=== PATIENT | female | born 1985 | race Caucasian/White ===

== ENCOUNTER 2017-03-23 15:25 | Emergency (ER) | payer OTHER ==
[~2017-03-23] VITALS: Ht 160 cm; Wt 133.0 kg
[2017-03-23 15:52] VITALS: Ht 160 cm; Wt 133.0 kg
[2017-03-23 16:59] LABS: URINE BLOOD (Dip) POC Negative (NEGATIVE)
[2017-03-23] MEDS ORDERED: ACET/BUTAL/CAFF TAB PO ONE (17:00)
[2017-03-23] MEDS ORDERED: FIORICET PO (18:29)
[2017-03-23 18:41] VITALS: BP 154/85; PULSE 94; RESP 18; TEMP 98.2
--- NOTE | 2017-03-23 19:29 | ERD ---
ER Documentation Chief Complaint Date/Time DATE: 03/23/17 TIME: 19:24 Chief Complaint RT SIDE MUNSON AND RIGHT EAR PAIN X 5 DAYS HPI 31-year-old female patient with no significant past medical history presents to the ED complaining of a right-sided headache that started gradually 1 week ago but however the pain radiated to her ear yesterday. Rates the pain a 10 out of 10 and describes as sharp and pulsating. States that she took ibuprofen and it has slight relief of her pain. States last dosage was 2 hours ago. Reports the pain is intermittent. States that loud noises make the pain worse. Denies any abdominal pain, weakness, dizziness, nausea, vomiting, diarrhea, chest pain , shortness of breath. Denies any head injuries. Denies any loss of consciousness. Denies any seizures. Denies any blurred vision, diplopia, photophobia. ROS All systems reviewed and are negative except as per history of present illness. Medications Home Meds Active Scripts Acetamin/Butalbital/Caffeine* (Fioricet*) [id number] Tab, 1 TAB PO Q6H Y for PAIN, #30 TAB Prov:ROSALINDA COLLINS PA-C 03/23/17 Allergies Allergies: Coded Allergies: Penicillins (Verified Allergy, Mild, rash, 03/23/17) throat swelling PMhx/Soc Medical and Surgical Hx: pt denies Medical Hx, pt denies Surgical Hx History of Surgery: No Anesthesia Reaction: No Hx Neurological Disorder: No Hx Respiratory Disorders: No Hx Cardiac Disorders: No Hx Psychiatric Problems: No Hx Miscellaneous Medical Probl: No Hx Alcohol Use: No Hx Substance Use: No Hx Tobacco Use: No Physical Exam Vitals Vital Signs Date Time Temp Pulse Resp B/P Pulse Ox O2 Delivery O2 Flow Rate FiO2 03/23/17 18:41 98.2 94 18 154/85 100 Room Air 03/23/17 15:52 97.6 100 20 173/90 100 Physical Exam Const: [id number], well-nourished. In no acute distress. Head: Atraumatic, normocephalic Eyes: Normal Conjunctiva without injection. No purulent discharge. PERRLA. EOMI ENT: Normal external ear. Ear canal without erythema. Tympanic membrane pearly olivera without effusion or bulging. Nasal canal clear with normal turbinates. Moist oropharynx without tonsillar exudates. Non-erythematous pharynx. Uvula midline. No drooling. No trismus. Neck: No cervical midline tenderness. Full range of motion. No meningismus. No cervical lymphadenopathy. No JVD. Resp: Clear to auscultation bilaterally. No wheezing, rhonchi, rales, or crackles. No accessory muscle use. No retractions. Cardio: Regular rate and rhythm. No murmurs, rubs or gallops. Abd: Soft, non tender, non distended. Normal bowel sounds. No palpable masses. No rebound tenderness. No guarding. Negative McBurney's Point. Negative Buckner's Sign. Skin: Normal skin turgor. No petechiae or rashes Back: No midline tenderness. No CVA tenderness. Ext: No cyanosis, or edema. Distal pulses intact bilaterally. Neur: Awake and alert. Normal gait. Normal coordination. Cranial Nerves II- VII intact. Normal finger to nose. Muscle strength 5/5. Sensation intact. Psych: Normal Mood and Affect Results 24 hrs Laboratory Tests Test 03/23/17 16:59 Bedside Urine pH (LAB) 5.5 Bedside Urine Protein (LAB) 1+ Bedside Urine Glucose (UA) 0.50% Bedside Urine Ketones (LAB) Trace Bedside Urine Blood Negative Bedside Urine Nitrite (LAB) Negative Bedside Urine Leukocyte Esterase (L Negative Current Medications Medications (Trade) Dose Ordered Sig/Juan Luis Route PRN Reason Start Time Stop Time Status Last Admin Dose Admin Acetaminophen/ Butalbital/ Caffeine (Fioricet) 1 tab ONCE ONCE PO 03/23/17 17:00 03/23/17 17:01 DC 03/23/17 17:17 Procedures/MDM This is a 31-year-old female patient with no significant past medical history presents to the ED complaining of a headache that started intermittently 1 week ago. Patient is afebrile and nontoxic-appearing. Patient has normal vital signs. A urine dip and urine was ordered to further evaluate patient. Patient's blood pressure was noted to be 173/86. Patient's blood pressure was elevated (>120/80) but appears stable without evidence of hypertension emergency or urgency. The patient was counseled about the risks of hypertension and urged to pursue outpatient monitoring and therapy within a week with their primary care physician. This could be secondary to pain. Patient was given Fioricet here in the ED with improvement of her pain. Patient 's blood pressure is now 154/85. Urine dip showed 0.5% glucose, trace ketones and 1+ proteinuria. Negative . This case was discussed with my supervising physician, Dr. Doherty who agreed with the management and discharge plan. No proptosis noted, jaw claudication. Patient could likely have a nonspecific headache - tension versus migraine. Low suspicion for temporal arteritis, intracranial bleed, subarachnoid hemorrhage, meningitis, TIA, stroke , subdural hematoma, epidural hematoma, seizures, or other emergent conditions. Discharge medications: Fioricet Follow up with primary care physician in 1-2 days for further evaluation and treatment. Instructed patient to return to the ED sooner for any worsening symptoms. Patient's questions were answered. Patient understood and agreed with discharge plan. Patient discharged stable. Departure Diagnosis: Primary Impression: Headache Headache type: unspecified Headache chronicity pattern: acute headache Intractability: not intractable Qualified Code: R51 - Acute nonintractable headache, unspecified headache type Condition: Stable Patient Instructions: Headache, Unspecified Referrals: RYAN EATON (PCP) [facility] YOU HAVE RECEIVED A MEDICAL SCREENING EXAM AND THE RESULTS INDICATE THAT YOU DO NOT HAVE A CONDITION THAT REQUIRES URGENT TREATMENT IN THE EMERGENCY DEPARTMENT. FURTHER EVALUATION AND TREATMENT OF YOUR CONDITION CAN WAIT UNTIL YOU ARE SEEN IN YOUR DOCTORS OFFICE WITHIN THE NEXT 1-2 DAYS. IT IS YOUR RESPONSIBILITY TO MAKE AN APPOINTMENT FOR FOLOW-UP CARE. IF YOU HAVE A PRIMARY DOCTOR --you should call your primary doctor and schedule an appointment IF YOU DO NOT HAVE A PRIMARY DOCTOR YOU CAN CALL OUR PHYSICIAN REFERRAL HOTLINE AT IF YOU CAN NOT AFFORD TO SEE A PHYSICIAN YOU CAN CHOSE FROM THE FOLLOWING [facility] [address] [facility]. [facility] [address] [facility]. [facility] [address] [facility]. [facility] [address] [facility]. [facility] [address] [facility]. [facility]. [address] [facility]. [facility] YOU HAVE RECEIVED A MEDICAL SCREENING EXAM AND THE RESULTS INDICATE THAT YOU DO NOT HAVE A CONDITION THAT REQUIRES URGENT TREATMENT IN THE EMERGENCY DEPARTMENT. FURTHER EVALUATION AND TREATMENT OF YOUR CONDITION CAN WAIT UNTIL YOU ARE SEEN IN YOUR DOCTORS OFFICE WITHIN THE NEXT 1-2 DAYS. IT IS YOUR RESPONSIBILITY TO MAKE AN APPOINTMENT FOR FOLOW-UP CARE. IF YOU HAVE A PRIMARY DOCTOR --you should call your primary doctor and schedule and appointment IF YOU DO NOT HAVE A PRIMARY DOCTOR YOU CAN CALL OUR PHYSICIAN REFERRAL HOTLINE AT . IF YOU CAN NOT AFFORD TO SEE A PHYSICIAN YOU CAN CHOSE FROM THE FOLLOWING [facility] INSTITUTIONS: [facility] [address] [place] [address] [facility] [address] [place] [address] [facility] [address] [place] [address] [facility] URGENT CARE/SPECIALTIES Additional Instructions: Call your primary care doctor TOMORROW for an appointment during the next 1-2 days.See the doctor sooner or return here if your condition worsens before your appointment time. ROSALINDA COLLINS PA-C Mar 23, 2017 19:29 ROSALINDA COLLINS PA-C Mar 23, 2017 19:29
== END 2017-03-23 18:43 | disposition home or self-care (01) ==
LOC: FTE 15:25
DX: R51 Headache (principal)
CPT/HCPCS: 81003; Z7610; 99283